=== PATIENT | male | born 1950 | race Caucasian/White ===

== ENCOUNTER 2019-08-17 15:53 | Inpatient (IN) | payer MEDICARE ==
[2019-08-17] MEDS ORDERED: Lactated Ringers 1,000 ML IV ONE (16:44)
[2019-08-17] MEDS ORDERED: Piperacillin/Tazobactam 4.5 GM in Sodium Chloride 0.9% 100 ML IV ONE (16:46)
--- NOTE | 2019-08-17 17:46 | EDM.PDOC ---
ED HPI GENERAL MEDICAL PROBLEM - General Chief Complaint: Abdominal Pain Stated Complaint: GALLSTONES Time Seen by Provider: 08/17/19 17:15 Source of Information: Reports: Patient History Limitations: Reports: No Limitations - History of Present Illness INITIAL COMMENTS - FREE TEXT/NARRATIVE: 69 yo who presents with RUQ pain and CT findings consistent with cholecystitis. Reports he started having pain two days ago. Has been sharp and constant. No radiation. Went to clinic today, had CT which showed stone in the cystic duct and GB wall thickening. He denies fever. Right Upper Abdomen Pain Score (Numeric/FACES): 9 - Related Data Allergies Allergy/AdvReac Type Severity Reaction Status Date / Time No Known Allergies Allergy Verified 08/17/19 16:28 Home Meds: Home Meds Aspirin 325 mg PO DAILY 08/17/13 [History] Krill/[place]-3/Dha/Epa/Lipids [Krill Oil 300 mg Softgel] 300 mg PO QAM 08/17/13 [ History] Lisinopril 5 mg PO QPM 08/17/13 [History] Multivitamin [One Daily] 1 mg PO DAILY 08/17/13 [History] Nitroglycerin 0.4 mg SL ASDIRECTED PRN 08/17/13 [History] Simvastatin [Zocor] 80 mg PO BEDTIME 08/17/13 [History] Cyanocobalamin (Vitamin B-12) [Vitamin B-12] 500 mg PO QPM 01/04/16 [History] Metoprolol Succinate 25 mg PO BID 01/04/16 [History] Past Medical History HEENT History: Reports: Impaired Vision Cardiovascular History: Reports: Bypass, CAD, High Cholesterol, Hypertension, [place] Genitourinary History: Reports: Pyelonephritis, Other (See Below) Other Genitourinary History: overactive bladder Hematologic History: Reports: Blood Transfusion(s) - Past Surgical History Cardiovascular Surgical History: Reports: Coronary Artery Bypass GI Surgical History: Reports: Colonoscopy, EGD Social & Family History - Tobacco Use Smoking Status *Q: Never Smoker - Caffeine Use Caffeine Use: Reports: Coffee - Recreational Drug Use Recreational Drug Use: No ED ROS GENERAL - Review of Systems Review Of Systems: See Below Constitutional: Reports: No Symptoms HEENT: Reports: No Symptoms Respiratory: Reports: No Symptoms Cardiovascular: Reports: No Symptoms Endocrine: Reports: No Symptoms GI/Abdominal: Reports: Abdominal Pain : Reports: No Symptoms Musculoskeletal: Reports: No Symptoms Skin: Reports: No Symptoms Neurological: Reports: No Symptoms Psychiatric: Reports: No Symptoms Hematologic/Lymphatic: Reports: No Symptoms Immunologic: Reports: No Symptoms ED EXAM, GI/ABD - Physical Exam Exam: See Below Exam Limited By: No Limitations General Appearance: Alert, No Apparent Distress Ears: Normal External Exam Nose: Normal Inspection Throat/Mouth: Normal Inspection Head: Atraumatic, Normocephalic Neck: Normal Inspection Respiratory/Chest: Lungs Clear, Normal Breath Sounds Cardiovascular: No Murmur, Tachycardia GI/Abdominal Exam: Soft, Tender (RUQ tenderness). No: Rigid Back Exam: Normal Inspection Extremities: Normal Inspection Neurological: Alert, Oriented Psychiatric: Normal Affect, Normal Mood Skin Exam: Warm, Dry Course - Vital Signs Last Recorded V/S: Last Vital Signs Temp 37.3 C 08/17/19 16:24 Pulse 136 H 08/17/19 16:24 Resp 18 08/17/19 16:24 BP 140/83 08/17/19 16:24 Pulse Ox 94 L 08/17/19 16:24 - Orders/Labs/Meds Orders: Active Orders 24 hr Category Date Time Status COMPREHENSIVE METABOLIC PN,CMP [CHEM] Stat Lab 08/17/19 16:44 Received Lactated Ringers [Ringers, Lactated] 1,000 ml Med 08/17/19 16:44 Active IV BOLUS Piperacillin/Tazobactam [Zosyn] 4.5 gm Med 08/17/19 16:46 Active Sodium Chloride 0.9% [Normal Saline] 100 ml IV ONETIME Medication Orders Lactated Ringer's (Ringers, Lactated) 1,000 mls @ 999 mls/hr IV BOLUS ONE Stop: 08/17/19 17:44 Last Admin: 08/17/19 17:07 Dose: 999 mls/hr Piperacillin Sod/Tazobactam (Sod 4.5 gm/ Sodium Chloride) 100 mls @ 100 mls/hr IV ONETIME ONE Stop: 08/17/19 17:45 Last Admin: 08/17/19 17:08 Dose: 100 mls/hr Labs: Laboratory Tests 08/17/19 08/17/19 Range/Units 16:44 16:44 WBC 16.1 H (4.5-11.0) K/uL RBC 5.92 H (4.30-5.90) M/uL Hgb 17.1 H (12.0-15.0) g/dL Hct 51.9 (40.0-54.0) % MCV 88 (80-98) fL MCH 29 (27-31) pg MCHC 33 (32-36) % Plt Count 324 (150-400) K/uL Lactic Acid 2.9 H (0.4-2.0) mmol/L Meds: Medications Generic Name Dose Route Start Last Admin Trade Name Fremirela PRN Reason Stop Dose Admin Lactated Ringer's 1,000 mls @ 999 mls/hr 08/17/19 16:44 08/17/19 17:07 Ringers, Lactated IV 08/17/19 17:44 999 mls/hr BOLUS ONE Administration Piperacillin Sod/Tazobactam 100 mls @ 100 mls/hr 08/17/19 16:46 08/17/19 17: 08 Sod 4.5 gm/ Sodium Chloride IV 08/17/19 17:45 100 mls/hr ONETIME ONE Administration - Re-Assessments/Exams Free Text/Narrative Re-Assessment/Exam: 69 yo who presents with concerns of RUQ pain Found to have cholelithiasis with early cholecystitis on CT Tender on exam Tachycardic but no hypotensive here CMP pending, does have leukocytosis and modest bump in lactate Receiving IVF, dose of zosyn 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 who will admit for cholecystectomy 08/17/19 17:44 Departure - Departure Time of Disposition: 17:45 Disposition: Admitted As Inpatient 64 Clinical Impression: Cholecystitis - Discharge Information *PRESCRIPTION DRUG MONITORING PROGRAM REVIEWED*: No *COPY OF PRESCRIPTION DRUG MONITORING REPORT IN PATIENT ELISSA: No Referrals: PCP,None [Primary Care Provider] - - My Orders Last 24 Hours: My Active Orders 08/17/19 16:44 COMPREHENSIVE METABOLIC PN,CMP [CHEM] Stat Lactated Ringers [Ringers, Lactated] 1,000 ml IV BOLUS 08/17/19 16:46 Piperacillin/Tazobactam [Zosyn] 4.5 gm Sodium Chloride 0.9% [Normal Saline] 100 ml IV ONETIME - Assessment/Plan Last 24 Hours: My Active Orders 08/17/19 16:44 COMPREHENSIVE METABOLIC PN,CMP [CHEM] Stat Lactated Ringers [Ringers, Lactated] 1,000 ml IV BOLUS 08/17/19 16:46 Piperacillin/Tazobactam [Zosyn] 4.5 gm Sodium Chloride 0.9% [Normal Saline] 100 ml IV ONETIME
[2019-08-17] MEDS ORDERED: Lactated Ringers 1,000 ML IV SCH (19:30)
--- NOTE | 2019-08-17 19:36 | PCM.HP.2 ---
H&P History of Present Illness - General Date of Service: 08/17/19 Admit Problem/Dx: Admission Diagnosis/Problem Admission Diagnosis/Problem Acute cholecystitis due to biliary calculus Source of Information: Patient, Provider History Limitations: Reports: No Limitations - History of Present Illness Initial Comments - Free Text/Narative: CC: my side hurts HPI: Charles presents to the emergency room today from the clinic with right upper quadrant abdominal pain. He says that his pain started 2 days ago and has progressed since that time. He describes achy pain in the right upper quadrant that radiates throughout his back. He does have some sharp pains as well, especially when he lays down. Moving around makes the pain is slightly worse but no change with food. Tylenol does not help the pain much when he took some. He has had subjective fevers as well as nausea and vomiting. Appetite has been decreased. He has not had a bowel movement in a couple of days. No change in bladder habits. No shortness of breath or chest pain. He has an excellent functional status and can square dance without any limitations such as shortness of breath or chest pain. He does not have a history of trouble with anesthesia. Workup in the emergency room revealed evidence for cholecystitis with gallstones on CT. Laboratory studies showed leukocytosis, lactic acidosis and elevation of bilirubin at greater than 5 as well as AST and ALT. Surgery has been consulted. Plan is for admission and repeat laboratory testing in the morning and then we will decide if he will have surgery or need ERCP. Right Upper Abdomen Pain Score (Numeric/FACES): 9 - Related Data Allergies/Adverse Reactions: Allergies Allergy/AdvReac Type Severity Reaction Status Date / Time No Known Allergies Allergy Verified 08/17/19 16:28 Home Medications: Home Meds Aspirin 325 mg PO DAILY 08/17/13 [History] Krill/[place]-3/Dha/Epa/Lipids [Krill Oil 300 mg Softgel] 300 mg PO QAM 08/17/13 [ History] Lisinopril 5 mg PO QPM 08/17/13 [History] Multivitamin [One Daily] 1 mg PO DAILY 08/17/13 [History] Nitroglycerin 0.4 mg SL ASDIRECTED PRN 08/17/13 [History] Simvastatin [Zocor] 80 mg PO BEDTIME 08/17/13 [History] Cyanocobalamin (Vitamin B-12) [Vitamin B-12] 500 mg PO QPM 01/04/16 [History] Metoprolol Succinate 25 mg PO BID 01/04/16 [History] Past Medical History HEENT History: Reports: Impaired Vision Cardiovascular History: Reports: Bypass, CAD, High Cholesterol, Hypertension, [place] Genitourinary History: Reports: Pyelonephritis, Other (See Below) Other Genitourinary History: overactive bladder Hematologic History: Reports: Blood Transfusion(s) - Past Surgical History Cardiovascular Surgical History: Reports: Coronary Artery Bypass GI Surgical History: Reports: Colonoscopy, EGD Social & Family History - Family History Oncologic: Reports: Pancreatic (mom) Other Family History: no family hx of trouble with anesthesia - Tobacco Use Smoking Status *Q: Never Smoker - Caffeine Use Caffeine Use: Reports: Coffee - Recreational Drug Use Recreational Drug Use: No H&P Review of Systems - Review of Systems: Review Of Systems: See Below Free Text/Narrative: A complete 12 point review of systems was obtained. Pertinent positives and negatives are noted in the history of present illness. All other systems were reviewed and were negative except as noted. Exam - Exam Exam: See Below - Vital Signs Vital Signs: Last Vital Signs Temp 37.8 C 08/17/19 18:55 Pulse 136 H 08/17/19 16:24 Resp 28 H 08/17/19 18:55 BP 134/85 08/17/19 18:55 Pulse Ox 96 08/17/19 18:55 Weight: 83.915 kg - Exam Quality Assessment: No: Supplemental Oxygen General: Alert, Oriented, Cooperative, Mild Distress HEENT: Conjunctiva Clear. No: Mucosa Moist & [place] (dry), Scleral Icterus Neck: Supple, Trachea Midline. No: Lymphadenopathy Lungs: Clear to Auscultation, Normal Respiratory Effort Cardiovascular: Regular Rhythm, Tachycardia, Systolic Murmur GI/Abdominal Exam: Soft, No Distention, Tender, Abnormal Bowel Sounds ( hypoactive right side) Extremities: No Pedal Edema. No: Increased Warmth Peripheral Pulses: 2+: Dorsalis Pedis (L), Dorsalis Pedis (R) Skin: Warm, Dry Neuro Extensive - Mental Status: Alert, Oriented x3, Nl Response to Commands Neuro Extensive - Motor, Sensory, Reflexes: No: Dysarthria, Abnormal Motor, Tremor Psychiatric: Alert, Normal Affect - Patient Data Lab Results Last 24 hrs: Laboratory Results - last 24 hr 08/17/19 08/17/19 08/17/19 Range/Units 16:44 16:44 16:44 WBC 16.1 H (4.5-11.0) K/uL RBC 5.92 H (4.30-5.90) M/uL Hgb 17.1 H (12.0-15.0) g/dL Hct 51.9 (40.0-54.0) % MCV 88 (80-98) fL MCH 29 (27-31) pg MCHC 33 (32-36) % Plt Count 324 (150-400) K/uL Sodium 132 L (140-148) mmol/L Potassium 3.9 (3.6-5.2) mmol/L Chloride 97 L (100-108) mmol/L Carbon Dioxide 22 (21-32) mmol/L Anion Gap 16.9 H (5.0-14.0) mmol/L BUN 13 (7-18) mg/dL Creatinine 1.1 (0.8-1.3) mg/dL Est Cr Clr Drug Dosing 67.61 mL/min Estimated GFR (MDRD) > 60 (>60) Glucose 196 H (74-106) mg/dL Lactic Acid 2.9 H (0.4-2.0) mmol/L Calcium 9.1 (8.5-10.1) mg/dL Total Bilirubin 5.2 H D (0.2-1.0) mg/dL Direct Bilirubin (0.0-0.2) mg/dL AST 168 H D (15-37) U/L ALT 264 H (12-78) U/L Alkaline Phosphatase 187 H D (46-116) U/L Total Protein 8.0 (6.4-8.2) g/dL Albumin 3.9 (3.4-5.0) g/dL Globulin 4.1 H (2.3-3.5) g/dL Albumin/Globulin Ratio 1.0 L (1.2-2.2) Amylase (25-115) U/L Lipase (73-393) U/L 08/17/19 08/17/19 Range/Units 17:30 18:24 WBC (4.5-11.0) K/uL RBC (4.30-5.90) M/uL Hgb (12.0-15.0) g/dL Hct (40.0-54.0) % MCV (80-98) fL MCH (27-31) pg MCHC (32-36) % Plt Count (150-400) K/uL Sodium (140-148) mmol/L Potassium (3.6-5.2) mmol/L Chloride (100-108) mmol/L Carbon Dioxide (21-32) mmol/L Anion Gap (5.0-14.0) mmol/L BUN (7-18) mg/dL Creatinine (0.8-1.3) mg/dL Est Cr Clr Drug Dosing mL/min Estimated GFR (MDRD) (>60) Glucose (74-106) mg/dL Lactic Acid (0.4-2.0) mmol/L Calcium (8.5-10.1) mg/dL Total Bilirubin (0.2-1.0) mg/dL Direct Bilirubin 2.36 H (0.0-0.2) mg/dL AST (15-37) U/L ALT (12-78) U/L Alkaline Phosphatase (46-116) U/L Total Protein (6.4-8.2) g/dL Albumin (3.4-5.0) g/dL Globulin (2.3-3.5) g/dL Albumin/Globulin Ratio (1.2-2.2) Amylase 36 (25-115) U/L Lipase 136 (73-393) U/L Result Diagrams: 08/17/19 16:44 08/17/19 16:44 Imaging Impressions Last 24 hrs: CT abd/pelvis - gallbladder wall is thickened there are multiple gallstones c/w acute cholecystitis *Q Meaningful Use (ADM) - VTE *Q VTE Pharmacological Contraindications *Q: Patient Scheduled Surgery - VTE Risk Assess *Q Each Risk Factor Represents 1 Point: Sepsis Total Score 1 Point Risk Factors: 1 Each Risk Factor Represents 2 Points: Age 60 - 74 Years Total Score 2 Point Risk Factors: 2 Each Risk Factor Represents 3 Points: None Total Score 3 Point Risk Factors: 0 Each Risk Factor Represents 5 Points: None Total Score 5 Point Risk Factors: 0 Venous Thromboembolism Risk Factor Score *Q: 3 - Problem List (1) Acute cholecystitis due to biliary calculus SNOMED Code(s): 99294741859529 ICD Code: K80.00 - CALCULUS OF GALLBLADDER W ACUTE CHOLECYST W/O OBSTRUCTION Status: Acute Current Visit: Yes (2) Sepsis SNOMED Code(s): 60495726 ICD Code: A41.9 - SEPSIS, UNSPECIFIED ORGANISM Status: Acute Current Visit: Yes Qualifiers: Sepsis type: sepsis due to unspecified organism Sepsis acute organ dysfunction status: without acute organ dysfunction Qualified Code(s): A41.9 - Sepsis, unspecified organism (3) CAD (coronary artery disease) SNOMED Code(s): 50163954 ICD Code: I25.10 - ATHSCL HEART DISEASE OF [place] CORONARY ARTERY W/O ANG PCTRS Status: Chronic Current Visit: Yes Qualifiers: Coronary Disease-Associated Artery/Lesion type: [place] artery [place] vs. transplanted heart: [place] heart Associated angina: without angina Qualified Code(s): I25.10 - Atherosclerotic heart disease of [place] coronary artery without angina pectoris Problem List Initiated/Reviewed/Updated: Yes Orders Last 24hrs: Active Orders 24 hr Category Date Time Status Patient Status Manage Transfer [TRANSFER] Routine ADT 08/17/19 19:27 Ordered Lactated Ringers [Ringers, Lactated] 1,000 ml Med 08/17/19 19:30 Active IV ASDIRECTED Resuscitation Status Routine Resus Stat 08/17/19 19:28 Ordered Medication Orders Lactated Ringer's (Ringers, Lactated) 1,000 mls @ 999 mls/hr IV ASDIRECTED DIVYA Stop: 08/17/19 20:31 Assessment/Plan Comment:: ASSESSMENT AND PLAN - Acute cholecystitis with cholelithiasis - bilirubin is elevated but unclear if there is biliary obstruction. Infection complicated by sepsis syndrome. Surgical intervention versus possible ERCP will be reevaluated tomorrow depending on laboratory studies and progression with infection and sepsis. He is a good surgical candidate with no obvious contraindications and an excellent functional status. -Second liter bolus of lactated Ringer's -Gentle infusion of fluids overnight -Repeat lactic acid tonight -Antibiotic coverage with Pip/Tazo -Pain and nausea control -Repeat labs in the morning Coronary artery disease - History of bypass in 2005. Excellent functional status and no anginal symptoms. -Continue beta jaki -Hold other medications Heart murmur - Sounds like mitral stenosis. No functional limitations so this should not hamper surgical intervention. -Echo in the morning Maintenance issues - - DVT prophylaxis - mechanical - GI prophylaxis - IV PPI 1 tonight - Nutrition - nothing by mouth - [place] catheter - Not indicated CODE STATUS - full code Admission justification - This patient will be admitted for inpatient services and is medically appropriate meeting medical necessity for inpatient admission as outlined in my documentation. I reasonably expect the patient will require inpatient services that span a period time over 2 midnights. I reasonably expect this patient to be discharged or transferred within 96 hours after admission to the [facility] Disposition - I would anticipate discharge home after the hospital stay Primary care physician - [place] [facility] Gume Anderson M.D. - Mortality Measure Prognosis:: Good
[2019-08-17] MEDS ORDERED: Pantoprazole 40 MG Vial IV ONE (19:59)
[2019-08-17] MEDS ORDERED: Ondansetron 4 MG/2 ML SDV IV PRN (19:59)
[2019-08-17] MEDS ORDERED: Albuterol 0.083% 2.5 MG/3 ML Neb Soln NEB PRN (19:59)
[2019-08-17] MEDS ORDERED: Magnesium Hydroxide 400 MG/5 ML Susp 30 ML Cup PO PRN (19:59)
[2019-08-17] MEDS ORDERED: HYDROmorphone 1 MG/ML Syringe IVPUSH PRN (19:59)
[2019-08-17] MEDS ORDERED: LORazepam 2 MG/ML SDV IVPUSH PRN (19:59)
[2019-08-17] MEDS ORDERED: Ondansetron 4 MG Tab.DIS PO PRN (19:59)
[2019-08-17] MEDS: Acetaminophen 325 MG Tab PO PRN (20:17)
--- NOTE | 2019-08-17 20:28 | PCM.CONS ---
H&P History of Present Illness - General Date of Service: 08/17/19 Admit Problem/Dx: Admission Diagnosis/Problem Admission Diagnosis/Problem Acute cholecystitis due to biliary calculus Source of Information: Patient, Provider History Limitations: Reports: No Limitations - History of Present Illness Initial Comments - Free Text/Narative: This 69 year old white male presented to the ER tonight complaining of right upper quadrant abdominal pain which radiates into his back. This has been going on for about two days. He denies prior abdominal surgery. No light stool , dark urine or jaundice. Onset of Symptoms: Reports: Other (Two days ago. ) Symptom Onset Date: 08/15/19 Duration of Symptoms: Reports: Day(s): Location: Reports: Abdomen Quality: Reports: Ache Improves with: Reports: None Worsens with: Reports: Movement Right Upper Abdomen Pain Score (Numeric/FACES): 9 - Related Data Allergies/Adverse Reactions: Allergies Allergy/AdvReac Type Severity Reaction Status Date / Time No Known Allergies Allergy Verified 08/17/19 16:28 Home Medications: Home Meds Aspirin 325 mg PO DAILY 08/17/13 [History] Krill/[place]-3/Dha/Epa/Lipids [Krill Oil 300 mg Softgel] 300 mg PO QAM 08/17/13 [ History] Lisinopril 5 mg PO QPM 08/17/13 [History] Multivitamin [One Daily] 1 mg PO DAILY 08/17/13 [History] Nitroglycerin 0.4 mg SL ASDIRECTED PRN 08/17/13 [History] Simvastatin [Zocor] 80 mg PO BEDTIME 08/17/13 [History] Cyanocobalamin (Vitamin B-12) [Vitamin B-12] 500 mg PO QPM 01/04/16 [History] Metoprolol Succinate 25 mg PO BID 01/04/16 [History] Past Medical History HEENT History: Reports: Impaired Vision Cardiovascular History: Reports: Bypass, CAD, High Cholesterol, Hypertension, [place] Genitourinary History: Reports: Pyelonephritis, Other (See Below) Other Genitourinary History: overactive bladder Hematologic History: Reports: Blood Transfusion(s) - Past Surgical History Cardiovascular Surgical History: Reports: Coronary Artery Bypass GI Surgical History: Reports: Colonoscopy, EGD Social & Family History - Family History Oncologic: Reports: Pancreatic (mom) Other Family History: no family hx of trouble with anesthesia - Tobacco Use Smoking Status *Q: Never Smoker - Caffeine Use Caffeine Use: Reports: Coffee - Recreational Drug Use Recreational Drug Use: No H&P Review of Systems - Review of Systems: Review Of Systems: See Below General: Reports: Decreased Appetite, Other (Abdominal pain. ) HEENT: Reports: No Symptoms Pulmonary: Reports: No Symptoms Cardiovascular: Reports: No Symptoms Gastrointestinal: Reports: Abdominal Pain Genitourinary: Reports: No Symptoms Musculoskeletal: Reports: No Symptoms Skin: Reports: No Symptoms Psychiatric: Reports: No Symptoms Neurological: Reports: No Symptoms Hematologic/Lymphatic: Reports: No Symptoms Immunologic: Reports: No Symptoms Exam - Exam Exam: See Below - Vital Signs Vital Signs: Last Vital Signs Temp 102 F H 08/17/19 20:17 Pulse 136 H 08/17/19 16:24 Resp 28 H 08/17/19 18:55 BP 134/85 08/17/19 18:55 Pulse Ox 96 08/17/19 18:55 Weight: 185 lb - Exam General: Alert, Oriented, Cooperative Lungs: Clear to Auscultation Cardiovascular: Regular Rate, Regular Rhythm, Tachycardia GI/Abdominal Exam: Tender (Right upper quadrant) Back Exam: Normal Inspection Extremities: Normal Inspection Neuro Extensive - Mental Status: Alert, Oriented x3, Normal Mood/Affect, Normal Cognition Psychiatric: Alert, Normal Affect, Normal Mood - Patient Data Lab Results Last 24 hrs: Laboratory Results - last 24 hr 08/17/19 08/17/19 08/17/19 Range/Units 16:44 16:44 16:44 WBC 16.1 H (4.5-11.0) K/uL RBC 5.92 H (4.30-5.90) M/uL Hgb 17.1 H (12.0-15.0) g/dL Hct 51.9 (40.0-54.0) % MCV 88 (80-98) fL MCH 29 (27-31) pg MCHC 33 (32-36) % Plt Count 324 (150-400) K/uL Sodium 132 L (140-148) mmol/L Potassium 3.9 (3.6-5.2) mmol/L Chloride 97 L (100-108) mmol/L Carbon Dioxide 22 (21-32) mmol/L Anion Gap 16.9 H (5.0-14.0) mmol/L BUN 13 (7-18) mg/dL Creatinine 1.1 (0.8-1.3) mg/dL Est Cr Clr Drug Dosing 67.61 mL/min Estimated GFR (MDRD) > 60 (>60) Glucose 196 H (74-106) mg/dL Lactic Acid 2.9 H (0.4-2.0) mmol/L Calcium 9.1 (8.5-10.1) mg/dL Total Bilirubin 5.2 H D (0.2-1.0) mg/dL Direct Bilirubin (0.0-0.2) mg/dL AST 168 H D (15-37) U/L ALT 264 H (12-78) U/L Alkaline Phosphatase 187 H D (46-116) U/L Total Protein 8.0 (6.4-8.2) g/dL Albumin 3.9 (3.4-5.0) g/dL Globulin 4.1 H (2.3-3.5) g/dL Albumin/Globulin Ratio 1.0 L (1.2-2.2) Amylase (25-115) U/L Lipase (73-393) U/L 08/17/19 08/17/19 Range/Units 17:30 18:24 WBC (4.5-11.0) K/uL RBC (4.30-5.90) M/uL Hgb (12.0-15.0) g/dL Hct (40.0-54.0) % MCV (80-98) fL MCH (27-31) pg MCHC (32-36) % Plt Count (150-400) K/uL Sodium (140-148) mmol/L Potassium (3.6-5.2) mmol/L Chloride (100-108) mmol/L Carbon Dioxide (21-32) mmol/L Anion Gap (5.0-14.0) mmol/L BUN (7-18) mg/dL Creatinine (0.8-1.3) mg/dL Est Cr Clr Drug Dosing mL/min Estimated GFR (MDRD) (>60) Glucose (74-106) mg/dL Lactic Acid (0.4-2.0) mmol/L Calcium (8.5-10.1) mg/dL Total Bilirubin (0.2-1.0) mg/dL Direct Bilirubin 2.36 H (0.0-0.2) mg/dL AST (15-37) U/L ALT (12-78) U/L Alkaline Phosphatase (46-116) U/L Total Protein (6.4-8.2) g/dL Albumin (3.4-5.0) g/dL Globulin (2.3-3.5) g/dL Albumin/Globulin Ratio (1.2-2.2) Amylase 36 (25-115) U/L Lipase 136 (73-393) U/L Result Diagrams: 08/17/19 16:44 08/17/19 16:44 Consult PN Assessment/Plan Procedures: Procedures ASSAY OF LACTIC ACID (03/07/15) ASSAY OF LIPASE (01/04/16) ASSAY OF TROPONIN QUANT (03/07/15) COMPLETE CBC AUTOMATED (01/04/16) COMPLETE CBC W/AUTO DIFF WBC (03/07/15) COMPREHEN METABOLIC PANEL (01/04/16) CT HEAD/BRAIN W/O DYE (03/07/15) ELECTROCARDIOGRAM REPORT (03/07/15) ELECTROCARDIOGRAM TRACING (03/07/15) EMERGENCY DEPT VISIT (01/04/16) EMERGENCY DEPT VISIT (01/04/16) EMERGENCY DEPT VISIT (03/07/15) ROUTINE VENIPUNCTURE (01/04/16) TTE W/DOPPLER COMPLETE (10/08/15) URINALYSIS AUTO W/SCOPE (01/04/16) (1) Acute cholecystitis due to biliary calculus SNOMED Code(s): 89671310793113 Code(s): K80.00 - CALCULUS OF GALLBLADDER W ACUTE CHOLECYST W/O OBSTRUCTION Current Visit: Yes Problem List Initiated/Reviewed/Updated: Yes My Orders Last 24 Hours: My Active Orders 08/18/19 07:00 Abdomen Ltd [US] Routine Plan: His total and direct bilirubin are elevated. No ductal dilatation on abdominal CT scan but with cholelithiasis and cystic duct stone. We will check his LFT's again in the AM and get an ultrasound to check GB wall thickness and status of ductal system (any choledocholithiasis?). If stone in common duct, refer to [place] for ERCP.
[2019-08-17] MEDS: Sodium Chloride 0.9% 1,000 ML IV SCH (20:55)
[2019-08-17] MEDS: Metoprolol Succinate 25 MG Tab.ER PO SCH (21:17)
[2019-08-17] MEDS ORDERED: Sodium Chloride 0.9% 500 ML IV ONE (22:11)
[2019-08-17] MEDS: Piperacillin/Tazobactam 3.375 GM in Sodium Chloride 0.9% 50 ML IV SCH (23:20)
[2019-08-18] MEDS ORDERED: Magnesium Sulfate/Water 2 GM in Premix Bag 1 BAG IV ONE (03:45)
[2019-08-18] MEDS ORDERED: Magnesium Sulfate/Water 50 ML ONE (03:54)
[2019-08-18] MEDS: Piperacillin/Tazobactam 3.375 GM in Sodium Chloride 0.9% 50 ML IV SCH (04:59)
[2019-08-18] MEDS: Sodium Chloride 0.9% 1,000 ML IV SCH ×2 (05:45→14:17)
[2019-08-18] MEDS: Acetaminophen 325 MG Tab PO PRN (05:48)
--- NOTE | 2019-08-18 08:37 | CRLUS ---
INDICATION: Elevated direct bilirubin. Cholelithiasis. TECHNIQUE: Ultrasound abdomen limited. COMPARISON: CT abdomen pelvis August 17, 2019. FINDINGS: Gallbladder: Multiple gallbladder stones are present. There is wall thickening measuring 6 mm and pericholecystic fluid. Common bile duct: 7 mm. IMPRESSION: Cholelithiasis with gallbladder wall thickening and pericholecystic fluid consistent with acute cholecystitis. Dictated by Rick Alonzo MD @ Aug 18 2019 8:30AM Signed by Dr. Rick Alonzo @ Aug 18 2019 8:36AM
--- NOTE | 2019-08-18 09:34 | PCM.DCSUM1 ---
Discharge Summary - Hospital Course Brief History: 69-year-old male with a history of coronary artery bypass grafting in 2005 2 presented with 2 days of abdominal pain. CT scan from the clinic suggested acute cholecystitis with cholelithiasis. In the emergency room the patient was noted to have sepsis with tachycardia, lactic acidosis and elevated bilirubin at more than 5. He was admitted for management of acute cholecystitis. Diagnosis: Stroke: No - Discharge Data Discharge Date: 08/18/19 Discharge Disposition: DC/Tfer to Acute Hospital 02 Condition: Stable - Referral to Home Health Primary Care Physician: PCP None - Discharge Diagnosis/Problem(s) (1) Acute cholecystitis due to biliary calculus SNOMED Code(s): 04681315017808 ICD Code: K80.00 - CALCULUS OF GALLBLADDER W ACUTE CHOLECYST W/O OBSTRUCTION Status: Acute Current Visit: Yes (2) Sepsis SNOMED Code(s): 66630327 ICD Code: A41.9 - SEPSIS, UNSPECIFIED ORGANISM Status: Acute Current Visit: Yes Qualifiers: Sepsis type: sepsis due to unspecified organism Sepsis acute organ dysfunction status: without acute organ dysfunction Qualified Code(s): A41.9 - Sepsis, unspecified organism (3) CAD (coronary artery disease) SNOMED Code(s): 88296233 ICD Code: I25.10 - ATHSCL HEART DISEASE OF [place] CORONARY ARTERY W/O ANG PCTRS Status: Chronic Current Visit: Yes Qualifiers: Coronary Disease-Associated Artery/Lesion type: [place] artery [place] vs. transplanted heart: [place] heart Associated angina: without angina Qualified Code(s): I25.10 - Atherosclerotic heart disease of [place] coronary artery without angina pectoris - Patient Summary/Data Consults: Consultations 08/17/19 19:59 Consult to Physician [CONS] Routine Consulting Provider: Irving Monge Courtesy Call Completed to Consulting Physician: Yes Reason for Consult: acute cholecystitis Person Notified: BDB Date Notified: 08/17/19 Special Instructions: possible dario in am Hospital Course: Charles presented initially to the clinic with 2 days of abdominal pain. They completed a CT scan of the abdomen and pelvis and discovered that he had evidence for acute cholecystitis with a thickened gallbladder wall as well as multiple gallstones and a gallstone in the cystic duct. We did not definitively identify a stone in the common bile duct. He was sent to the emergency room for further stabilization and hospital admission. In the emergency room he was noted to have sepsis with a heart rate in the 140s and a lactic acid 2.9. His bilirubin level was 5.2 with a direct bilirubin of 2.3. AST and ALTs were mildly elevated and his alkaline phosphatase was 187. He received IV fluids and broad-spectrum antibiotics with Pip/Tazo. Surgical services were consult today and the patient was admitted to the hospital with the plan for fluids and antibiotics overnight and to reassess in the morning before determining surgical course. Overnight the patient had a fever greater than 102, which did eventually calm down but his temperature has remained elevated mildly overnight. The morning after admission/today of discharge the patient reports that he is feeling a little better. His abdominal pain has improved slightly. Unfortunately his bilirubin level has risen to more than 7. We did complete an ultrasound of his abdomen this morning which showed ongoing evidence for acute cholecystitis with a thickened gallbladder wall and pericholecystic fluid. Stones were noted in the gallbladder. His common bile duct is currently 7 mm and we did not definitively identify stone. Morning labs and the ultrasound results were discussed with the surgeon information systems supervisor. He is concerned that there may be a stone contributing to the difficulty in that the patient may need ERCP or intraoperative cholangiogram. I talked to Dr. Moran at [facility] in [place]. He was gracious enough to accept the care of the patient in transfer and GI will be consulted. The patient is stable and safe for discharge/transfer at this time. The benefits of transfer far outweigh the risks at this point. Also of note, the patient had a heart murmur which she had not previously been told about. On examination the murmur was thought to be consistent with mitral stenosis. We did complete an echocardiogram which showed normal left ventricular function, no impressive valvular abnormalities and no evidence for aortic or mitral stenosis. The main abnormality noted was apical akinesis. - Patient Instructions Diet: NPO Activity: Bedrest Notify Provider of: Fever, Increased Pain, Nausea and/or Vomiting Other/Special Instructions: Transfer to [facility] in [place] for GI eval and possible ERCP with acute cholecystitis, cholelithiasis and sepsis - Discharge Plan *PRESCRIPTION DRUG MONITORING PROGRAM REVIEWED*: No *COPY OF PRESCRIPTION DRUG MONITORING REPORT IN PATIENT ELISSA: No Home Medications: Home Meds Aspirin 325 mg PO DAILY 08/17/13 [History] Krill/[place]-3/Dha/Epa/Lipids [Krill Oil 300 mg Softgel] 300 mg PO QAM 08/17/13 [ History] Lisinopril 5 mg PO QPM 08/17/13 [History] Multivitamin [One Daily] 1 mg PO DAILY 08/17/13 [History] Nitroglycerin 0.4 mg SL ASDIRECTED PRN 08/17/13 [History] Simvastatin [Zocor] 80 mg PO BEDTIME 08/17/13 [History] Cyanocobalamin (Vitamin B-12) [Vitamin B-12] 500 mg PO QPM 01/04/16 [History] Metoprolol Succinate 25 mg PO BID 01/04/16 [History] Oxygen Therapy Mode: Room Air Referrals: PCP,None [Primary Care Provider] - ([facility] in [place] ) - Discharge Summary/Plan Comment DC Time >30 min.: Yes (45 - transferred to [facility]) - Patient Data Vitals - Most Recent: Last Vital Signs Temp 37.7 C 08/18/19 06:02 Pulse 76 08/18/19 00:37 Resp 14 08/18/19 06:02 BP 121/65 08/18/19 06:02 Pulse Ox 95 08/18/19 06:02 Weight - Most Recent: 83.915 kg I&O - Last 24 hours: Intake & Output 08/17/19 08/18/19 08/18/19 22:59 06:59 14:59 Intake Total 3553 Output Total 300 650 400 Balance -300 2903 -400 Lab Results - Last 24 hrs: Laboratory Results - last 24 hr 08/17/19 08/17/19 08/17/19 Range/Units 16:44 16:44 16:44 WBC 16.1 H (4.5-11.0) K/uL RBC 5.92 H (4.30-5.90) M/uL Hgb 17.1 H (12.0-15.0) g/dL Hct 51.9 (40.0-54.0) % MCV 88 (80-98) fL MCH 29 (27-31) pg MCHC 33 (32-36) % Plt Count 324 (150-400) K/uL Sodium 132 L (140-148) mmol/L Potassium 3.9 (3.6-5.2) mmol/L Chloride 97 L (100-108) mmol/L Carbon Dioxide 22 (21-32) mmol/L Anion Gap 16.9 H (5.0-14.0) mmol/L BUN 13 (7-18) mg/dL Creatinine 1.1 (0.8-1.3) mg/dL Est Cr Clr Drug Dosing 67.61 mL/min Estimated GFR (MDRD) > 60 (>60) Glucose 196 H (74-106) mg/dL Lactic Acid 2.9 H (0.4-2.0) mmol/L Calcium 9.1 (8.5-10.1) mg/dL Magnesium (1.8-2.4) mg/dL Total Bilirubin 5.2 H D (0.2-1.0) mg/dL Direct Bilirubin (0.0-0.2) mg/dL AST 168 H D (15-37) U/L ALT 264 H (12-78) U/L Alkaline Phosphatase 187 H D (46-116) U/L Total Protein 8.0 (6.4-8.2) g/dL Albumin 3.9 (3.4-5.0) g/dL Globulin 4.1 H (2.3-3.5) g/dL Albumin/Globulin Ratio 1.0 L (1.2-2.2) Amylase (25-115) U/L Lipase (73-393) U/L 08/17/19 08/17/19 08/17/19 Range/Units 17:30 18:24 21:30 WBC (4.5-11.0) K/uL RBC (4.30-5.90) M/uL Hgb (12.0-15.0) g/dL Hct (40.0-54.0) % MCV (80-98) fL MCH (27-31) pg MCHC (32-36) % Plt Count (150-400) K/uL Sodium (140-148) mmol/L Potassium (3.6-5.2) mmol/L Chloride (100-108) mmol/L Carbon Dioxide (21-32) mmol/L Anion Gap (5.0-14.0) mmol/L BUN (7-18) mg/dL Creatinine (0.8-1.3) mg/dL Est Cr Clr Drug Dosing mL/min Estimated GFR (MDRD) (>60) Glucose (74-106) mg/dL Lactic Acid 2.3 H (0.4-2.0) mmol/L Calcium (8.5-10.1) mg/dL Magnesium (1.8-2.4) mg/dL Total Bilirubin (0.2-1.0) mg/dL Direct Bilirubin 2.36 H (0.0-0.2) mg/dL AST (15-37) U/L ALT (12-78) U/L Alkaline Phosphatase (46-116) U/L Total Protein (6.4-8.2) g/dL Albumin (3.4-5.0) g/dL Globulin (2.3-3.5) g/dL Albumin/Globulin Ratio (1.2-2.2) Amylase 36 (25-115) U/L Lipase 136 (73-393) U/L 08/18/19 08/18/19 08/18/19 Range/Units 03:26 04:30 04:30 WBC 13.0 H (4.5-11.0) K/uL RBC 4.82 (4.30-5.90) M/uL Hgb 14.3 D (12.0-15.0) g/dL Hct 43.1 (40.0-54.0) % MCV 89 (80-98) fL MCH 30 (27-31) pg MCHC 33 (32-36) % Plt Count 225 (150-400) K/uL Sodium 138 L (140-148) mmol/L Potassium 3.7 (3.6-5.2) mmol/L Chloride 104 (100-108) mmol/L Carbon Dioxide 24 (21-32) mmol/L Anion Gap 13.7 (5.0-14.0) mmol/L BUN 11 (7-18) mg/dL Creatinine 1.0 (0.8-1.3) mg/dL Est Cr Clr Drug Dosing 74.47 mL/min Estimated GFR (MDRD) > 60 (>60) Glucose 114 H (74-106) mg/dL Lactic Acid (0.4-2.0) mmol/L Calcium 7.9 L (8.5-10.1) mg/dL Magnesium 1.5 L (1.8-2.4) mg/dL Total Bilirubin 7.0 H (0.2-1.0) mg/dL Direct Bilirubin (0.0-0.2) mg/dL AST 77 H (15-37) U/L ALT 163 H (12-78) U/L Alkaline Phosphatase 127 H (46-116) U/L Total Protein 5.6 L (6.4-8.2) g/dL Albumin 2.6 L (3.4-5.0) g/dL Globulin 3.0 (2.3-3.5) g/dL Albumin/Globulin Ratio 0.9 L (1.2-2.2) Amylase (25-115) U/L Lipase (73-393) U/L Med Orders - Current: Current Medications Acetaminophen (Tylenol) 650 mg PO Q4H PRN PRN Reason: Pain (Mild 1-3)/fever Last Admin: 08/18/19 05:48 Dose: 650 mg Albuterol (Proventil Neb Soln) 2.5 mg NEB Q4H PRN PRN Reason: Shortness Of Breath/wheezing Hydromorphone HCl (Dilaudid) 0.5 mg IVPUSH Q2H PRN PRN Reason: Pain Sodium Chloride (Normal Saline) 1,000 mls @ 125 mls/hr IV ASDIRECTED [facility] Last Admin: 08/18/19 05:45 Dose: 125 mls/hr Piperacillin/Tazobactam/ (Dextrose 3.375 gm/ Premix) 50 mls @ 100 mls/hr IV Q6H DIVYA Lorazepam (Ativan) 0.5 mg IVPUSH Q4H PRN PRN Reason: Nausea/Vomiting Magnesium Hydroxide (Milk Of Magnesia) 30 ml PO Q12H PRN PRN Reason: Constipation Metoprolol Succinate (Toprol Xl) 25 mg PO BID [facility] Last Admin: 08/17/19 21:17 Dose: 25 mg Ondansetron HCl (Zofran Odt) 4 mg PO Q6H PRN PRN Reason: Nausea able to take PO Ondansetron HCl (Zofran) 4 mg IV Q6H PRN PRN Reason: Nausea/Vomiting Senna/Docusate Sodium (Senna Plus) 1 tab PO BID PRN PRN Reason: Constipation Discontinued Medications Lactated Ringer's (Ringers, Lactated) 1,000 mls @ 999 mls/hr IV BOLUS ONE Stop: 08/17/19 17:44 Last Admin: 08/17/19 17:07 Dose: 999 mls/hr Piperacillin Sod/Tazobactam (Sod 4.5 gm/ Sodium Chloride) 100 mls @ 100 mls/hr IV ONETIME ONE Stop: 08/17/19 17:45 Last Admin: 08/17/19 17:08 Dose: 100 mls/hr Lactated Ringer's (Ringers, Lactated) 1,000 mls @ 999 mls/hr IV ASDIRECTED [facility] Stop: 08/17/19 20:31 Last Admin: 08/17/19 19:47 Dose: 999 mls/hr Piperacillin Sod/Tazobactam (Sod 3.375 gm/ Sodium Chloride) 50 mls @ 100 mls/ hr IV Q6H [facility] Last Admin: 08/18/19 04:59 Dose: 100 mls/hr Sodium Chloride (Normal Saline) 500 mls @ 500 mls/hr IV .BOLUS ONE Stop: 08/17/19 23:10 Last Admin: 08/17/19 22:11 Dose: 500 mls/hr Magnesium Sulfate 2 gm/ Premix 50 mls @ 12.5 mls/hr IV ONETIME ONE Stop: 08/18/19 07:44 Last Admin: 08/18/19 04:00 Dose: 12.5 mls/hr Magnesium Sulfate (Magnesium Sulfate In Water Premix) Confirm Administered Dose 50 mls @ as directed .ROUTE .STK-MED ONE Stop: 08/18/19 03:55 Last Admin: 08/18/19 05:00 Dose: Not Given Pantoprazole Sodium (Protonix Iv) 40 mg IV ONETIME ONE Stop: 08/17/19 20:00 Last Admin: 08/17/19 21:17 Dose: 40 mg - Exam Quality Assessment: Denies: Supplemental Oxygen General: Reports: Alert, Oriented, Cooperative, No Acute Distress Lungs: Reports: Normal Respiratory Effort Cardiovascular: Reports: Regular Rate, Regular Rhythm GI/Abdominal Exam: Soft, No Distention Extremities: No Pedal Edema Psy/Mental Status: Reports: Alert, Normal Affect *Q Meaningful Use (DIS) - VTE *Q VTE Pharmacological Contraindications *Q: Patient Scheduled Surgery
[2019-08-18] MEDS: Metoprolol Succinate 25 MG Tab.ER PO SCH (09:45)
[2019-08-18 09:46] VITALS: BP 124/65
[2019-08-18] MEDS ORDERED: Piperacillin/Tazobactam/Dext 3.375 GM in Premix Bag 1 BAG IV SCH (10:00)
[2019-08-18 10:53] VITALS: PULSE 69
== END 2019-08-18 15:21 | DRG 444 ==
LOC: JP.ED 15:53 → JP.ICU 19:27
PROVIDERS: ADMIT Internal Medicine; ATTEND Internal Medicine
DX: K80.00 Calculus of gallbladder with acute cholecystitis without obstruction (principal); A41.9 Sepsis, unspecified organism; R00.0 Tachycardia, unspecified; E87.2 Acidosis; E78.00 Pure hypercholesterolemia, unspecified; I25.10 Atherosclerotic heart disease of native coronary artery without angina pectoris; R01.1 Cardiac murmur, unspecified; R29.898 Other symptoms and signs involving the musculoskeletal system; H54.7 Unspecified visual loss; R74.8 Abnormal levels of other serum enzymes; I10 Essential (primary) hypertension; I25.2 Old myocardial infarction; Z95.1 Presence of aortocoronary bypass graft; Z79.82 Long term (current) use of aspirin; Z79.899 Other long term (current) drug therapy; R10.31 Right lower quadrant pain; K80.20 Calculus of gallbladder without cholecystitis without obstruction; K82.8 Other specified diseases of gallbladder
CPT/HCPCS: 36415 ×2; 74177; 80053; 82150; 82248; 82565; 83605; 83690; 85027; 96365; 99283; 99285; J2543; J7030 ×2; J7120; Q9967; 76705; 83735; 93306; A9270-GY; C9113; J3475; J7040; J7050

== ENCOUNTER 2019-08-29 07:47 | Day surgery (SDC) | payer MEDICARE ==
[~2019-08-29 07:47] MED LIST: Bupivacaine 0.5%/EPINEPHrine 1:200,000 50 ML MDV ONE; Meropenem 500 MG SDV ONE
[2019-08-29] MEDS: Dextrose 5%-Lactated Ringers 1,000 ML IV SCH ×2 (08:02→15:29)
[2019-08-29] MEDS ORDERED: Acetaminophen 500 MG Tab PO ONE (08:15)
[2019-08-29] MEDS ORDERED: Ropivacaine 44 ML, dexAMETHasone 8 MG, EPINEPHrine 0.4 MG, Sodium Chloride 0.9% 33.6 ML NERVRT SCH ×4 (09:00)
[2019-08-29] MEDS ORDERED: fentaNYL 250 MCG/5 ML SDV ONE (10:07)
[2019-08-29] MEDS ORDERED: Rocuronium 50 MG/5 ML Vial ONE (10:08)
[2019-08-29] MEDS ORDERED: Ondansetron 4 MG/2 ML SDV ONE (10:08)
[2019-08-29] MEDS ORDERED: Neostigmine Methylsulfate 1 MG/ML 5 ML Syringe ONE (10:08)
[2019-08-29] MEDS ORDERED: Glycopyrrolate 0.2 MG/ML 5 ML MDV ONE (10:08)
[2019-08-29] MEDS ORDERED: Propofol 200 MG/20 ML SDV ONE (10:08)
[2019-08-29] MEDS ORDERED: Dexamethasone 4 MG/ML SDV ONE (10:08)
[2019-08-29] MEDS: Ampicillin/Sulbactam Na 3 GM in Sodium Chloride 0.9% 100 ML IV ONE ×2 (12:16→18:06)
[2019-08-29] MEDS ORDERED: Lactated Ringers 1,000 ML ONE (13:15)
[2019-08-29] MEDS ORDERED: fentaNYL 100 MCG/2 ML SDV ONE (13:59)
[2019-08-29] MEDS ORDERED: Labetalol 20 MG/4 ML Syringe IVPUSH ONE (14:41)
[2019-08-29] MEDS ORDERED: Labetalol 20 MG/4 ML Syringe IVPUSH PRN (14:52)
[2019-08-29] MEDS ORDERED: Nitroglycerin 0.4 MG Tab.SL SL PRN (16:04)
[2019-08-29] MEDS ORDERED: HYDROmorphone 0.5 MG/0.5 ML Syringe IVPUSH PRN (16:06)
[2019-08-29] MEDS ORDERED: Ondansetron 4 MG/2 ML SDV IVPUSH PRN (16:06)
[2019-08-29] MEDS ORDERED: HYDROmorphone 1 MG/ML Syringe IV PRN (16:06)
[2019-08-29] MEDS ORDERED: Pantoprazole 40 MG Vial IVPUSH SCH (17:00)
[2019-08-29] MEDS: Ampicillin/Sulbactam Na 3 GM in Sodium Chloride 0.9% 100 ML IV SCH ×2 (18:11→23:09)
[2019-08-29] MEDS: Acetaminophen/HYDROcodone 325-5 MG Tab PO PRN (18:26)
--- NOTE | 2019-08-29 19:29 | OR ---
DATE OF PROCEDURE: 08/29/2019 SURGEON: Tejas Moreira MD PREOPERATIVE DIAGNOSIS: Chronic cholecystitis and cholelithiasis, status post choledocholithiasis. POSTOPERATIVE DIAGNOSES: 1. Chronic cholecystitis and cholelithiasis, status post choledocholithiasis. 2. Pericholecystic abscess. PROCEDURE: Diagnostic laparoscopy with: 1. Cholecystectomy (39318). 2. Drainage of pericholecystic abscess (20649). ANESTHESIA: General. NUT GRINDER: Madeleine Villanueva PA-C. INDICATIONS FOR PROCEDURE: This is a 69-year-old, recently status post an ERCP for removal of choledocholithiasis. He presents now for an interval cholecystectomy. Plan is to proceed with a cholecystectomy. We will attempt a laparoscopic approach with possible need for an open approach. Otherwise, potential risks including bleeding, infection, injury to the common bile duct, problems with stones migrating into the common bile duct requiring additional procedure such as ERCP once again for correction as well as possibility of cardiopulmonary, septic, or hemorrhagic complications leading to were discussed, and the patient wishes to proceed. DETAILS OF PROCEDURE: The patient was taken to the operating room and placed in a supine position. After general endotracheal anesthesia was induced, the abdomen was prepped and draped. A transverse subumbilical incision was made and a Veress needle inserted, and after ascertaining adequate drop test, the peritoneal cavity was inflated to 20 mmHg pressure with CO2. Following this, a 10 mm trocar was placed in the subumbilical site and the peritoneal cavity entered. No underlying trocar insertion site injuries were seen. Following this, a 12 mm epigastric trocar, followed by a 5 mm right abdominal trocar were placed and the upper abdomen examined. The patient had a quite edematous and firm gallbladder consistent with subacute and chronic cholecystitis. This had some loose omental adhesions, which were taken down with a combination of Harmonic scalpel and blunt dissection. Dissection then continued onto the gallbladder neck and then continued around the gallbladder neck and cystic duct junction. Once that area was well delineated as was the adjacent cystic artery, the duct which was felt to be quite thickened and friable was divided with a LAN purple load and the artery divided after being clipped 3 times proximally, once distally. Gallbladder was then dissected off the gallbladder bed and delivered through the epigastric trocar site containing multitude of variable sized stones. During the course of the dissection as one began to dissect the posterior aspect of the gallbladder, roughly 10 mL purulent collection was identified. This was evacuated, and this was associated with some focal peritonitis in that area consistent with a small pericholecystic abscess. As this was well evacuated, no further additional treatment other than placement of the postoperative drain would be indicated. At this point, the area of dissection was inspected. No bleeding or bile leaks were seen. Fer-Guido drain was taken out through the right lateral trocar site and positioned into the area of the gallbladder bed and pericholecystic abscess. The trocars were then sequentially removed. The midline 12 mm sites were closed with 0 Vicryl stitch and the skin with 4-0 Vicryl skin stitch. Dressing was applied. The patient was taken to the recovery room in satisfactory condition. The patient had received bilateral transversus abdominis plane blocks and also had the 12 mm trocar sites anesthetized with 0.5% Marcaine with epinephrine. Physician surgical supply assistant, Madeleine Villanueva, played an essential role in assisting in this case, helping to position the patient, retract structures as needed, as well as suturing and cutting sutures when indicated. Her presence improved the patient's safety and decreased the operative time. Tejas Moreira MD /[id number]
[2019-08-29] MEDS ORDERED: Lidocaine 2% Jelly 10 ML Urojet MUCMEM ONE (20:42)
[2019-08-29] MEDS ORDERED: Tamsulosin 0.4 MG Cap.ER PO SCH (21:00)
[2019-08-30] MEDS: Dextrose 5%-Lactated Ringers 1,000 ML IV SCH (02:36)
[2019-08-30] MEDS: Ampicillin/Sulbactam Na 3 GM in Sodium Chloride 0.9% 100 ML IV SCH (05:34)
[2019-08-30 08:08] VITALS: BP 117/57; PULSE 84
[2019-08-30] MEDS: Acetaminophen/HYDROcodone 325-5 MG Tab PO PRN (08:09)
[2019-08-30] MEDS ORDERED: Lisinopril 5 MG Tab PO SCH (09:00)
[2019-08-30] MEDS ORDERED: Amoxicillin/Clavulanate K 875-125 MG Tab PO SCH (09:00)
[2019-08-30] MEDS ORDERED: Aspirin 325 MG Tab.EC PO SCH (09:00)
[2019-08-30] MEDS ORDERED: Metoprolol Succinate 50 MG Tab.ER PO SCH (09:00)
--- NOTE | 2019-08-30 11:36 | DISCH ---
ADMISSION DIAGNOSES: Cholecystitis, coronary artery disease, and hypertension. DISCHARGE DIAGNOSES: Diagnostic laparoscopy with: 1. Cholecystectomy. 2. Drainage of pericholecystic abscess for chronic cholecystitis and cholelithiasis, status post choledocholithiasis and pericholecystic abscess. Date of surgery, 08/29/2019. Surgeon, Tejas Moreira MD. HISTORY: Charles is a 69-year-old male, recently status post ERCP for removal of choledocholithiasis. After preoperative evaluation and discussion of possible risks and possible complications, he wishes to proceed with surgical procedure. HOSPITAL COURSE: Charles had his surgery on 08/29/2019. He was unable to void on 08/29/2019. A Paulino catheter was placed. He was started on Flomax. The Paulino catheter was removed early on 08/30/2019. He was able to void without difficulty. His pain has been controlled. His activity is good. He tolerated a regular diet and is able to be discharged to home. PHYSICAL EXAMINATION: GENERAL: Charles Pastrana is a 69-year-old male. VITAL SIGNS: Height is 5 feet 11 inches, weight is 183 pounds. TPR is 97.2, 84, 14. Blood pressure 117/57. HEENT: Negative. NECK: Supple. HEART: Regular rate and rhythm. LUNGS: Clear. ABDOMEN: Trocar sites look good. Sutures intact and LOIDA drain will be removed prior to discharge. Abdominal binder is on. EXTREMITIES: Without peripheral edema. DISPOSITION: Discharged to home. CONDITION: Stable and improving. HOME MEDICATIONS: 1. Augmentin 875 mg 1 tablet b.i.d., #10. 2. [place] 5/325 mg 1 tablet every 4 hours p.r.n. pain, #30. 3. Flomax 0.4 mg p.o. at bedtime, #14. 4. He is to resume his home medications. FOLLOWUP: Followup appointment with Madeleine Villanueva PA-C, 09/08/2019 at 10 a.m. DIET: Usual diet as tolerated. Drink 8 to 10 glasses of water a day. ACTIVITY: No lifting greater than 10 pounds for 2 weeks[address] Driving, do not drive for 1 week and while on pain medication. Shower/bathing, may shower. Keep operative site clean and dry. Wear abdominal binder for 2 weeks and as tolerated. Notify provider if any fever, increased pain, swelling, redness, nausea, or vomiting. SPECIAL INSTRUCTION: Use incentive spirometer 10 times every hour while awake for 1 week.
== END 2019-08-30 11:05 | disposition home or self-care (01) ==
LOC: JP.SDS 07:47 → JP.MS 14:30 → JP.SDS 08-30 11:05
PROVIDERS: ATTEND Surgery
DX: K80.12 Calculus of gallbladder with acute and chronic cholecystitis without obstruction (principal); I25.10 Atherosclerotic heart disease of native coronary artery without angina pectoris; I10 Essential (primary) hypertension; Z88.0 Allergy status to penicillin
CPT/HCPCS: 36415; 47562; 49020; 51702; 51798; 80053; 82247; 83735; 83880; 84075; 84100; 85027; 88304; A9270; C9113; J0171; J0295; J1100; J2405; J2704; J2710; J2795; J3010; J3490; J7030; J7042; J7050; J7120; J2185

== ENCOUNTER 2020-10-01 23:46 | Emergency (ER) | payer MEDICARE ==
[2020-10-02 00:05] VITALS: BP 181/96; PULSE 79
--- NOTE | 2020-10-02 00:21 | EDM.PDOC ---
ED HPI GENERAL MEDICAL PROBLEM - General Chief Complaint: Lower Extremity Injury/Pain Stated Complaint: TINGLING IN RIGHT FOOT Time Seen by Provider: 10/02/20 00:23 Source of Information: Reports: Patient History Limitations: Reports: No Limitations - History of Present Illness INITIAL COMMENTS - FREE TEXT/NARRATIVE: pt arrived with a history of tingling in the rt foot for 1/2 hour. He then tried to take his bp and he was not able to get one. This worried him significantly. Onset: Today Duration: Hour(s): Location: Reports: Lower Extremity, Right Associated Symptoms: Reports: No Other Symptoms - Related Data Allergies Allergy/AdvReac Type Severity Reaction Status Date / Time No Known Allergies Allergy Verified 10/02/20 00:05 Home Meds: Home Meds Aspirin 325 mg PO DAILY 08/17/13 [History] Krill/[place]-3/Dha/Epa/Lipids [Krill Oil 300 mg Softgel] 300 mg PO QAM 08/17/13 [History] Lisinopril 5 mg PO QPM 08/17/13 [History] Multivitamin [One Daily] 1 mg PO DAILY 08/17/13 [History] Nitroglycerin 0.4 mg SL ASDIRECTED PRN 08/17/13 [History] Cyanocobalamin (Vitamin B-12) [Vitamin B-12] 500 mg PO QPM 01/04/16 [History] Metoprolol Succinate 50 mg PO DAILY 01/04/16 [History] atorvaSTATin [Lipitor] 40 mg PO BEDTIME 08/25/19 [History] Tamsulosin [Flomax] 0.4 mg PO BEDTIME #14 cap.er 08/30/19 [Rx] Past Medical History HEENT History: Reports: Hard of Hearing, Impaired Vision Cardiovascular History: Reports: Bypass, CAD, High Cholesterol, Hypertension, [place] Gastrointestinal History: Reports: Cholelithiasis Genitourinary History: Reports: Pyelonephritis, Other (See Below) Other Genitourinary History: overactive bladder Hematologic History: Reports: Blood Transfusion(s) - Infectious Disease History Infectious Disease History: Reports: Chicken Pox - Past Surgical History Cardiovascular Surgical History: Reports: Coronary Artery Bypass GI Surgical History: Reports: Cholecystectomy, Colonoscopy, EGD Social & Family History - Family History Oncologic: Reports: Pancreatic - Tobacco Use Tobacco Use Status *Q: Never Tobacco User - Caffeine Use Caffeine Use: Reports: Coffee Caffeine Use Comment: very little - Recreational Drug Use Recreational Drug Use: No Review of Systems - Review of Systems Review Of Systems: See Below Constitutional: Reports: No Symptoms Eyes: Reports: No Symptoms Ears: Reports: No Symptoms Nose: Reports: No Symptoms Mouth/Throat: Reports: No Symptoms Respiratory: Reports: No Symptoms Cardiovascular: Reports: No Symptoms Musculoskeletal: Reports: Other ( tingling in the rt foot. ) ED EXAM, GENERAL - Physical Exam Exam: See Below Free Text/Narrative:: pt arrived with tingling in the rt foot. His bp was taken here and was actually on the high side. Exam Limited By: No Limitations General Appearance: Alert, No Apparent Distress, Anxious Extremities: Other ( rt and left foot appear to be the same color. The pulses are dimisissed but palpable on both feet. The numbness has now gone away. [facility]. ) Course - Vital Signs Last Recorded V/S: Last Vital Signs Temp 35.5 C L 10/02/20 00:03 Pulse 79 10/02/20 00:03 Resp 16 10/02/20 00:03 BP 181/96 H 10/02/20 00:03 Pulse Ox 99 10/02/20 00:03 Departure - Departure Time of Disposition: 00:19 Disposition: Home, Self-Care 01 Condition: Fair Clinical Impression: Numbness and tingling of foot - Discharge Information Referrals: Tri Degroot NP [Primary Care Provider] - Forms: ED Department Discharge Care Plan Goals: soak in warm water to stimulate the cirulation Sepsis Event Note (ED) - Evaluation Sepsis Screening Result: No Definite Risk - Focused Exam Vital Signs: Vital Signs Temp Pulse Resp BP Pulse Ox 10/02/20 00:03 35.5 C L 79 16 181/96 H 99
== END 2020-10-02 00:29 | disposition home or self-care (01) ==
LOC: JP.ED 23:46
DX: R20.0 Anesthesia of skin (principal); R20.2 Paresthesia of skin; I25.10 Atherosclerotic heart disease of native coronary artery without angina pectoris; E78.00 Pure hypercholesterolemia, unspecified; I10 Essential (primary) hypertension; I25.2 Old myocardial infarction; Z95.1 Presence of aortocoronary bypass graft; Z79.82 Long term (current) use of aspirin; Z79.899 Other long term (current) drug therapy
CPT/HCPCS: 99282; 99283

== ENCOUNTER 2023-05-29 00:30 | Emergency (ER) | payer OTHER, MEDICARE ==
[2023-05-29 01:01] VITALS: BP 163/102
[2023-05-29] MEDS ORDERED: Metoprolol Succinate 50 MG Tab.ER PO STA (01:44)
[2023-05-29 01:51] VITALS: PULSE 104
== END 2023-05-29 01:55 | disposition home or self-care (01) ==
LOC: JP.ED 00:30
DX: I10 Essential (primary) hypertension (principal); I25.10 Atherosclerotic heart disease of native coronary artery without angina pectoris; E78.00 Pure hypercholesterolemia, unspecified; I25.2 Old myocardial infarction; Z79.82 Long term (current) use of aspirin; Z95.1 Presence of aortocoronary bypass graft; Z79.899 Other long term (current) drug therapy; Z02.89 Encounter for other administrative examinations; Z71.89 Other specified counseling
CPT/HCPCS: A9270-GY

== ENCOUNTER 2024-11-01 21:53 | Emergency (ER) | payer OTHER, MEDICARE ==
[2024-11-01 22:58] LABS: BASOPHILS ABSOLUTE AUTO 0.06 K/uL (0.00-0.10); EOSINOPHILS ABSOLUTE AUTO 0.13 K/uL (0.00-0.40); EOSINOPHILS PERCENT AUTO 2.2 % (0.0-5.4); HEMOGLOBIN 15.2 g/dL (12.9-16.9); IMMATURE GRAN PERCENT AUTO 0.2 % (0.0-0.7); LYMPHOCYTES ABSOLUTE AUTO 1.05 K/uL (0.8-3.3); LYMPHOCYTES PERCENT AUTO 17.9 % (11.4-47.7); MEAN CORPUSCULAR HEMOGLOBIN 30.3 pg (31.6-35.5); MEAN CORPUSCULAR HGB CONC 33.8 g/dL (31.6-35.5); MEAN CORPUSCULAR VOLUME 89.8 fL (81.4-99.0); MONOCYTES ABSOLUTE AUTO 0.61 K/uL (0.20-0.90); MONOCYTES PERCENT AUTO 10.4 % (3.3-12.6); NEUTROPHILS ABSOLUTE AUTO 4.02 K/uL (1.0-7.6); NEUTROPHILS PERCENT AUTO 68.3 % (40.0-78.1); PLATELET COUNT,PLT 248 K/uL (130-375); RED BLOOD CELL COUNT 5.01 M/uL (4.14-5.76); WHITE BLOOD CELL COUNT,WBC 5.9 K/uL (3.2-11.0)
[2024-11-01 23:01] LABS: IMMATURE GRAN ABSOLUTE AUTO 0.01 K/uL (0.00-0.23)
[2024-11-01 23:10] LABS: ANION GAP 9.4 mmol/L (5.0-14.0); CALCIUM 9.6 mg/dL (8.5-10.1); CREATININE 1.2 mg/dL (0.8-1.3); EST CRCL DRUG DOSING (CG) 55.78 mL/min; POTASSIUM,K 3.8 mmol/L (3.6-5.2)
[2024-11-02 00:57] VITALS: BP 130/86; PULSE 67
== END 2024-11-01 23:47 | disposition home or self-care (01) ==
LOC: JP.ED 21:53
DX: I11.9 Hypertensive heart disease without heart failure (principal); F41.9 Anxiety disorder, unspecified; I25.10 Atherosclerotic heart disease of native coronary artery without angina pectoris; I25.2 Old myocardial infarction; I10 Essential (primary) hypertension; E78.00 Pure hypercholesterolemia, unspecified; Z95.5 Presence of coronary angioplasty implant and graft; Z90.49 Acquired absence of other specified parts of digestive tract; Z79.01 Long term (current) use of anticoagulants; Z79.899 Other long term (current) drug therapy
CPT/HCPCS: 36415; 80048; 85025; 93005; 93010; 99283; 99284